=== PATIENT | male | born 1990 | race Caucasian/White ===

== ENCOUNTER 2017-03-27 13:47 | Observation (INO) ==
[2017-03-27] MEDS ORDERED: ZOFRAN 4 MG/2 ML IVP STA ×2 (13:55→14:42)
[2017-03-27] MEDS ORDERED: SODIUM CHLORIDE 1,000 ML IV STA ×2 (13:55→15:15)
--- NOTE | 2017-03-27 14:03 | ED.PDOC ---
General ED Provider: Dr. BRUCE BECKFORD JR Chief Complaint: Nausea/Vomiting Stated Complaint: VOMITED 3 - 4 TIMES, ABD PAIN, DIARRHEA[ End ]since 0900 96.5 70 24 99% 9/10 loud retching limited communication complans of nausea Time Seen by Physician: 13:57 Mode of Arrival: Walk-In Information Source: Patient Exam Limitations: No limitations Nursing and Triage Documentation Reviewed and Agree: No Review of Systems - Review Of Systems Constitutional: Reports: Malaise, Weakness Eyes: Reports: No symptoms Ears, Nose, Mouth, Throat: Reports: No symptoms Respiratory: Reports: No symptoms Cardiac: Reports: No symptoms GI: Reports: Abdominal pain, Diarrhea, Nausea, Vomiting : Reports: No symptoms Musculoskeletal: Reports: No symptoms Skin: Reports: No symptoms Neurological: Reports: No symptoms Endocrine: Reports: No symptoms Hematologic/Lymphatic: Reports: No symptoms All Other Systems: Other Past Medical History - Past Medical History Previously Healthy: Yes Endocrine: Reports: None Cardiovascular: Reports: None Respiratory: Reports: None Hematological: Reports: None Gastrointestinal: Reports: None Genitourinary: Reports: None Neuro/Psych: Reports: None, Other (ADD) Musculoskeletal: Reports: None Cancer: Reports: None - Surgical History General Surgical History: Reports: Appendectomy, Cholecystectomy, Tonsillectomy - Family History Family History: Reports: None - Social History Smoking Status: Current every day smoker Hx Substance Use: No Alcohol Screening: Occasionally Physical Exam - Physical Exam Appearance: Ill-appearing Ill-appearing: Moderate Pain Distress: Moderate Eyes: VINCENT ENT: Ears normal, Nose normal, Oropharynx normal Neck: Supple Respiratory: Airway patent, Breath sounds clear, Breath sounds equal, Respirations nonlabored Cardiovascular: RRR, Pulses normal, No rub, No murmur GI/: No masses, Bowel sounds hyperactive Musculoskeletal: Normal strength, ROM intact, No edema, No calf tenderness Skin: Warm, Dry, Normal color Neurological: Sensation intact, Motor intact, Reflexes intact, Cranial nerves intact, Alert, Oriented Psychiatric: Anxious Re-Evaluation - Re-Evaluation Time of Re-Evaluation: 16:13 Status: Improved (a little better still nauseated) - Re-Evaluation Time of Re-Evaluation: 16:13 (stuill with some nausea much more comfortable) Critical Care Note - Critical Care Note Total Time (mins): 0 Course - Course Hematology/Chemistry: 03/27/17 14:00 03/27/17 14:00 Orders, Labs, Meds: Lab Review 03/27/17 03/27/17 14:00 16:55 WBC 13.44 H RBC 5.54 Hgb 16.0 Hct 46.1 MCV 83.2 MCH 28.9 MCHC 34.7 RDW Coeff of Alejandra 12.5 Plt Count 362 Immature Gran % (Auto) 0.4 Neut % (Auto) 76.9 Lymph % (Auto) 17.0 Nicholas % (Auto) 4.6 Eos % (Auto) 0.7 Baso % (Auto) 0.4 Immature Gran # (Auto) 0.1 Neut # 10.3 H Lymph # 2.3 Nicholas # 0.6 Eos # 0.1 Baso # 0.1 Sodium 142 Potassium 3.9 Chloride 108 H Carbon Dioxide 21 Anion Gap 16.9 BUN 8 Creatinine 0.93 Estimated GFR (MDRD) 99.00 BUN/Creatinine Ratio 8.60 Glucose 112 H Calcium 10.2 Total Bilirubin 0.60 AST 16 ALT 20 Alkaline Phosphatase 71 Total Protein 7.9 Albumin 4.8 Globulin 3.1 Albumin/Globulin Ratio 1.55 Amylase 42 Lipase 9 Urine Color Yellow Urine Clarity Clear Urine pH 7.0 Ur Specific [place] 1.025 Urine Protein Negative Urine Glucose (UA) Negative Urine Ketones Negative Urine Blood Negative Urine Nitrite Negative Urine Bilirubin Negative Urine Urobilinogen 0.2 Ur Leukocyte Esterase Negative H. pylori IgG Antibody Negative Orders Category Date Time Status PLACE PATIENT OBSERVATION .TO [facility] (NON-MONITORED ADMISSION 03/27/17 17: 27 Ordered BED) ACTIVITY .Early Mobilization for VTE Prevention CARE 03/27/17 17:29 Ordered GIVE HS SNACK 2100 CARE 03/27/17 17:29 Ordered INTAKE & OUTPUT Q8HR CARE 03/27/17 17:28 Ordered VITAL SIGNS Q4HR CARE 03/27/17 17:29 Ordered CLEAR LIQUID DIET DIETARY 03/27/17 Dinner Ordered HS SNACK DIETARY 03/27/17 Dinner Ordered ED IV/MEDIPORT/POWERPORT .ONCE EMERGENCY 03/27/17 13:54 Active AMYLASE Stat LAB 03/27/17 14:00 Completed BLOOD CULTURE Stat LAB 03/27/17 17:26 Ordered CBC W/ AUTO DIFF DAILY@0600 LAB 03/28/17 06:00 Ordered CBC W/ AUTO DIFF DAILY@0600 LAB 03/29/17 06:00 Ordered CBC W/ AUTO DIFF DAILY@0600 LAB 03/30/17 06:00 Ordered CBC W/ AUTO DIFF DAILY@0600 LAB 03/31/17 06:00 Ordered CBC W/ AUTO DIFF DAILY@0600 LAB 04/01/17 06:00 Ordered CBC W/ AUTO DIFF DAILY@0600 LAB 04/02/17 06:00 Ordered CBC W/ AUTO DIFF DAILY@0600 LAB 04/03/17 06:00 Ordered CBC W/ AUTO DIFF DAILY@0600 LAB 04/04/17 06:00 Ordered CBC W/ AUTO DIFF DAILY@0600 LAB 04/05/17 06:00 Ordered CBC W/ AUTO DIFF DAILY@0600 LAB 04/06/17 06:00 Ordered CBC W/ AUTO DIFF DAILY@0600 LAB 04/07/17 06:00 Ordered CBC W/ AUTO DIFF DAILY@0600 LAB 04/08/17 06:00 Ordered CBC W/ AUTO DIFF DAILY@0600 LAB 04/09/17 06:00 Ordered CBC W/ AUTO DIFF DAILY@0600 LAB 04/10/17 06:00 Ordered CBC W/ AUTO DIFF DAILY@0600 LAB 04/11/17 06:00 Ordered CBC W/ AUTO DIFF DAILY@0600 LAB 04/12/17 06:00 Ordered CBC W/ AUTO DIFF DAILY@0600 LAB 04/13/17 06:00 Ordered CBC W/ AUTO DIFF DAILY@0600 LAB 04/14/17 06:00 Ordered CBC W/ AUTO DIFF DAILY@0600 LAB 04/15/17 06:00 Ordered CBC W/ AUTO DIFF DAILY@0600 LAB 04/16/17 06:00 Ordered CBC W/ AUTO DIFF [facility] LAB 03/27/17 14:00 Completed COMPREHENSIVE METABOLIC PANEL DAILY@0600 LAB 03/28/17 06:00 Ordered COMPREHENSIVE METABOLIC PANEL DAILY@0600 LAB 03/29/17 06:00 Ordered COMPREHENSIVE METABOLIC PANEL DAILY@0600 LAB 03/30/17 06:00 Ordered COMPREHENSIVE METABOLIC PANEL DAILY@0600 LAB 03/31/17 06:00 Ordered COMPREHENSIVE METABOLIC PANEL DAILY@0600 LAB 04/01/17 06:00 Ordered COMPREHENSIVE METABOLIC PANEL DAILY@0600 LAB 04/02/17 06:00 Ordered COMPREHENSIVE METABOLIC PANEL DAILY@0600 LAB 04/03/17 06:00 Ordered COMPREHENSIVE METABOLIC PANEL DAILY@0600 LAB 04/04/17 06:00 Ordered COMPREHENSIVE METABOLIC PANEL DAILY@0600 LAB 04/05/17 06:00 Ordered COMPREHENSIVE METABOLIC PANEL DAILY@0600 LAB 04/06/17 06:00 Ordered COMPREHENSIVE METABOLIC PANEL DAILY@0600 LAB 04/07/17 06:00 Ordered COMPREHENSIVE METABOLIC PANEL DAILY@0600 LAB 04/08/17 06:00 Ordered COMPREHENSIVE METABOLIC PANEL DAILY@0600 LAB 04/09/17 06:00 Ordered COMPREHENSIVE METABOLIC PANEL DAILY@0600 LAB 04/10/17 06:00 Ordered COMPREHENSIVE METABOLIC PANEL DAILY@0600 LAB 04/11/17 06:00 Ordered COMPREHENSIVE METABOLIC PANEL DAILY@0600 LAB 04/12/17 06:00 Ordered COMPREHENSIVE METABOLIC PANEL DAILY@0600 LAB 04/13/17 06:00 Ordered COMPREHENSIVE METABOLIC PANEL DAILY@0600 LAB 04/14/17 06:00 Ordered COMPREHENSIVE METABOLIC PANEL DAILY@0600 LAB 04/15/17 06:00 Ordered COMPREHENSIVE METABOLIC PANEL DAILY@0600 LAB 04/16/17 06:00 Ordered COMPREHENSIVE METABOLIC PANEL Stat LAB 03/27/17 14:00 Completed H. PYLORI SCREEN Stat LAB 03/27/17 14:00 Completed LIPASE Stat LAB 03/27/17 14:00 Completed STOOL CULTURE Stat LAB 03/27/17 Ordered URINALYSIS C & S IF INDICATED Stat LAB 03/27/17 16:55 Completed 0.9 % Sodium Chloride [Saline Flush] MEDS 03/27/17 13:54 Active 1 syr IVF PRN PRN Acetaminophen [Tylenol] MEDS 03/27/17 17:29 Ordered 650 mg PO Q4H PRN Lisdexamfetamine Dimesylate [Vyvanse] MEDS 03/28/17 09:00 Ordered 40 mg PO DAILY Morphine Sulfate [Morphine 4 mg/ml Syringe] MEDS 03/27/17 14:41 Discontinued 4 mg IVP ONCE STA Morphine Sulfate [Morphine 4 mg/ml Syringe] MEDS 03/27/17 17:37 Ordered 4 mg IVP Q6H PRN Ondansetron HCl/Pf [Zofran 4 mg/2 ml] MEDS 03/27/17 13:55 Discontinued 4 mg IVP ONCE STA Ondansetron HCl/Pf [Zofran 4 mg/2 ml] MEDS 03/27/17 14:42 Discontinued 4 mg IVP ONCE STA Ondansetron HCl/Pf [Zofran 4 mg/2 ml] MEDS 03/27/17 17:26 Ordered 4 mg IVP Q6H PRN Promethazine HCl [Phenergan 25 mg/ml Vial] MEDS 03/27/17 15:22 Discontinued 25 mg .ROUTE .STK-MED ONE Promethazine HCl [Phenergan 25 mg/ml Vial] 25 mg MEDS 03/27/17 15:18 Discontinued 0.9 % Sodium Chloride [Sodium Chloride] 50 ml IV ONCE Sodium Chloride 0.9% [Sodium Chloride] 1,000 ml MEDS 03/27/17 17:30 Ordered IV 75 mls/hr Sodium Chloride 0.9% [Sodium Chloride] 1,000 ml MEDS 03/27/17 13:55 Discontinued IV BOLUS Sodium Chloride 0.9% [Sodium Chloride] 1,000 ml MEDS 03/27/17 15:15 Discontinued IV BOLUS RESUSCITATION STATUS Routine OTHERS 03/27/17 17:[address] ABDOMEN/PELVIS WO CONTRAST Stat RADS 03/27/17 13:54 Completed Medications Generic Name Dose Route Start Last Admin Trade Name Freq PRN Reason Stop Dose Admin Acetaminophen 650 mg 03/27/17 17:29 Tylenol PO Q4H PRN Mild Pain Sodium Chloride 1,000 mls @ 75 mls/hr 03/27/17 17:30 Sodium Chloride IV .[id number] [facility] Morphine Sulfate 4 mg 03/27/17 17:37 Morphine 4 Mg/Ml Syringe IVP Q6H PRN pain Non-Formulary Medication 40 mg 03/28/17 09:00 Lisdexamfetamine Dimesylate [Vyvanse] PO DAILY [facility] Ondansetron HCl 4 mg 03/27/17 17:26 Zofran 4 Mg/2 Ml IVP Q6H PRN Nausea / Vomiting Sodium Chloride 1 syr 03/27/17 13:54 03/27/17 14:50 Saline Flush IVF 1 syr PRN PRN Administration To flush IV Discontinued Medications Generic Name Dose Route Start Last Admin Trade Name Freq PRN Reason Stop Dose Admin Sodium Chloride 1,000 mls @ 1,000 mls/hr 03/27/17 13:55 03/27/17 14:12 Sodium Chloride IV 03/27/17 14:54 1,000 mls/hr BOLUS STA Administration Sodium Chloride 1,000 mls @ 1,000 mls/hr 03/27/17 15:15 03/27/17 15:21 Sodium Chloride IV 03/27/17 16:14 1,000 mls/hr BOLUS STA Administration Promethazine HCl 25 mg/ Sodium 51 mls @ 75 mls/hr 03/27/17 15:18 03/27/17 15: 32 Chloride IV 03/27/17 15:58 75 mls/hr ONCE STA Administration Morphine Sulfate 4 mg 03/27/17 14:41 03/27/17 14:49 Morphine 4 Mg/Ml Syringe IVP 03/27/17 14:42 4 mg ONCE STA Administration Ondansetron HCl 4 mg 03/27/17 13:55 03/27/17 14:12 Zofran 4 Mg/2 Ml IVP 03/27/17 13:56 4 mg ONCE STA Administration Ondansetron HCl 4 mg 03/27/17 14:42 03/27/17 14:48 Zofran 4 Mg/2 Ml IVP 03/27/17 14:43 4 mg ONCE STA Administration Vital Signs: Temp Pulse Resp BP Pulse Ox 03/27/17 17:17 130/61 03/27/17 13:49 96.5 F L 70 24 0/0 L 99 Departure - Departure Time of Disposition: 16:22 Disposition: PLACED OBSERVATION Discharge Problem: Nausea, Vomiting, Gastroenteritis Instructions: Dehydration (ED), Gastroenteritis (ED), Acute Nausea and Vomiting (ED) Condition: Fair Pt referred to PMD for follow-up: Yes Additional Instructions: clear liquids only for 12 hours if nausea take one teaspoonful at time liquids with small amounts of salt and sugar are absorbed well may use phenergan for nausea Tylenol for pain or fever 650 or 1000mg four times a day limit Tylenol to 4000mg a day (note [place] contains Tylenol) [place] for [pain not controlled by Tylenol recheck PMD this week return if unable to void three times a day or if fever over 101.0 peptobismol for diarrhea may use Immodium if no fever Prescriptions: Hydrocodone Bit/Acetaminophen [[place] 5-325] 1 - 2 tab PO Q6HR PRN #12 tablet PRN Reason: pain Promethazine HCl [Phenergan Tab] 25 mg PO QID PRN #12 tablet PRN Reason: Nausea / Vomiting Allergies/Adverse Reactions: Allergies No Known Allergies Allergy (Unverified 03/27/17 13:48) Home Medications: Ambulatory Orders Lisdexamfetamine Dimesylate [Vyvanse] 40 mg PO DAILY #30 05/12/16 Hydrocodone Bit/Acetaminophen [[place] 5-325] 1 - 2 tab PO Q6HR PRN #12 tablet 03/06 Promethazine HCl [Phenergan Tab] 25 mg PO QID PRN #12 tablet 03/27/17
[2017-03-27 14:22] LABS: BASOPHILS # (AUTO) 0.1 K/uL (0-0.2); BASOPHILS % (AUTO) 0.4 % (0.0-3.0); EOSINOPHILS # (AUTO) 0.1 K/ul (0.0-0.7); EOSINOPHILS % (AUTO) 0.7 % (0.0-7.0); HEMATOCRIT 46.1 % (42.0-52.0); IMMATURE GRANULOCYTE % (AUTO) 0.4 % (0.0-5.0); LYMPHOCYTES # (AUTO) 2.3 K/uL (0.60-3.4); MEAN CORPUSCULAR HEMOGLOBIN 28.9 pg (27.0-31.0); MEAN CORPUSCULAR HGB CONC 34.7 (31.8-35.4); MEAN CORPUSCULAR VOLUME 83.2 fl (80.0-94.0); MONOCYTES # (AUTO) 0.6 K/uL (0.4-2.0); MONOCYTES % (AUTO) 4.6 (0-10); NEUTROPHILS # (AUTO) 10.3 K/ul (2.0-6.9); NEUTROPHILS % (AUTO) 76.9; PLATELET COUNT 362 10^3/uL (140-440); RED BLOOD COUNT 5.54 10^6/ul (4.70-6.10); WHITE BLOOD COUNT 13.44 K/ul (4.2-10.2)
[2017-03-27 14:35] LABS: ALBUMIN 4.8 g/dL (3.4-5.0); CALCIUM 10.2 mg/dL (8.2-10.2); POTASSIUM 3.9 mmol/L (3.5-5.1)
[2017-03-27 14:36] LABS: ALBUMIN/GLOBULIN RATIO 1.55; ANION GAP 16.9; BILIRUBIN,TOTAL 0.6 mg/dL (0.00-1.20); BUN/CREATININE RATIO 8.6; CREATININE 0.93 mg/dL (0.60-1.10); TOTAL PROTEIN 7.9 g/dL (6.4-8.2)
[2017-03-27 14:40] LABS: H. PYLORI ANTIBODY NEGATIVE (NEGATIVE); H.PYLORI INTERNAL QC INTERNAL QC VALID
[2017-03-27] MEDS ORDERED: MORPHINE 4 MG/ML SYRINGE IVP STA (14:41)
--- NOTE | 2017-03-27 15:02 | CT ---
EXAM: CT ABDOMEN AND PELVIS HISTORY: Upper abdominal pain with nausea and vomiting. Previous cholecystectomy and appendectomy. TECHNIQUE: CT abdomen and pelvis without intravenous contrast. Images were reconstructed using 5 m m section thickness. Reformations were prepared. COMPARISON: 10/03/2015 FINDINGS: Motion artifact degrades image quality. Diagnostic limitations exist without including contrast enha nced images. No focal hepatic or splenic lesions. Gallbladder is absent. Pancreas and adrenal gla nds are within normal limits. Kidneys, ureters and abdominal aorta appear normal. Small sliding hiatal hernia. There is no gastric distension. No appendix is identified consistent with the patient's history. The colon appears normal. There is increased submucosal fat deposition within the terminal ileum possibly related to previous bouts of inflammation. No active terminal i leitis is seen. It would be difficult to exclude at least mild fold thickening of the proximal smal l bowel at the duodenal - jejunal junction. Bowel gas pattern is nonobstructive. Urinary bladder a nd prostate appear normal. There is no ascites. No abdominal wall hernia or acute bony abnormalities. Lung bases are free of acute infiltrate. No pneumoperitoneum. IMPRESSION: 1. Cannot exclude mild proximal enteritis. In addition, there is possible evidence of previous ter ju[place] ileitis with no active disease at this level currently seen. Bowel gas pattern is nonobstruct lizet. There is no ascites or free air. 2. Small sliding hiatal hernia.
[2017-03-27] MEDS ORDERED: PHENERGAN 25 MG/ML VIAL 25 MG in SODIUM CHLORIDE 50 ML IV STA (15:18)
[2017-03-27] MEDS ORDERED: PHENERGAN 25 MG/ML VIAL ONE (15:22)
[2017-03-27 17:00] LABS: ADD URINE MICROSCOPIC NO; BILIRUBIN,URINE Negative (NEGATIVE); KETONES,URINE Negative (NEGATIVE); LEUKOCYTE ESTERASE ,URINE Negative (NEGATIVE); NITRITE,URINE Negative (NEGATIVE); PROTEIN,URINE Negative (NEGATIVE); URINE, BLOOD Negative (NEGATIVE)
[2017-03-27] MEDS ORDERED: TYLENOL PO PRN (17:29)
[2017-03-27] MEDS: SODIUM CHLORIDE 1,000 ML IV SCH (18:05)
[2017-03-27] MEDS: ZOFRAN 4 MG/2 ML IVP PRN (18:16)
[2017-03-27 18:38] VITALS: BMI 33.0
[2017-03-27] MEDS: MORPHINE 4 MG/ML SYRINGE IVP PRN (20:37)
[2017-03-28] MEDS: ZOFRAN 4 MG/2 ML IVP PRN ×2 (00:43→09:04)
[2017-03-28] MEDS: MORPHINE 4 MG/ML SYRINGE IVP PRN ×2 (04:33→11:20)
[2017-03-28 05:35] LABS: BASOPHILS % (AUTO) 0.1 % (0.0-3.0); HEMATOCRIT 42.3 % (42.0-52.0); HEMOGLOBIN 14.7 g/dl (14.0-18.0); IMMATURE GRANULOCYTE % (AUTO) 0.4 % (0.0-5.0); LYMPHOCYTES # (AUTO) 1.7 K/uL (0.60-3.4); LYMPHOCYTES % (AUTO) 10.4 (10.0-50.0); MEAN CORPUSCULAR HGB CONC 34.8 (31.8-35.4); MEAN CORPUSCULAR VOLUME 83.4 fl (80.0-94.0); MONOCYTES # (AUTO) 0.9 K/uL (0.4-2.0); MONOCYTES % (AUTO) 5.8 (0-10); NEUTROPHILS # (AUTO) 13.5 K/ul (2.0-6.9); NEUTROPHILS % (AUTO) 83.3; PLATELET COUNT 325 10^3/uL (140-440); RED BLOOD COUNT 5.07 10^6/ul (4.70-6.10); WHITE BLOOD COUNT 16.17 K/ul (4.2-10.2)
[2017-03-28 05:56] LABS: ALBUMIN 4.1 g/dL (3.4-5.0); ALBUMIN/GLOBULIN RATIO 1.52; ANION GAP 18.5; BILIRUBIN,TOTAL 0.84 mg/dL (0.00-1.20); BUN/CREATININE RATIO 9.09; CALCIUM 9.2 mg/dL (8.2-10.2); CREATININE 0.77 mg/dL (0.60-1.10); POTASSIUM 3.5 mmol/L (3.5-5.1); TOTAL PROTEIN 6.8 g/dL (6.4-8.2)
[2017-03-28] MEDS: SODIUM CHLORIDE 1,000 ML IV SCH (08:32)
[2017-03-28] MEDS ORDERED: LISDEXAMFETAMINE DIMESYLATE 40 MG PO SCH (09:00)
[2017-03-28 11:15] VITALS: BP 113/61; TEMP 98.1
--- NOTE | 2017-03-29 09:13 | SSS ---
DATE OF ADMISSION: 03/27/17 DATE OF DISCHARGE: 03/28/17 REASON FOR CONSULTATION/ADMISSION: Observation. Gastroenteritis, nausea and no vomiting. Seen in ER by Dr. Castanon. HISTORY OF PRESENT ILLNESS: Nausea or vomiting. 3-4 episodes of emesis in last 4 hours. Denies diarrhea unable to eat or drink. REVIEW OF SYSTEMS: CONSTITUTIONAL: No night sweats. No fatigue and lethargy. No fever or chills. Malaise and Weakness. HEENT: Eyes: No visual changes. No eye pain. No eye discharge. ENT: No runny nose. No epistaxis. No sinus pain. No sore throat. No odynophagia. No ear pain. No congestion. RESPIRATORY: No cough, no congestion. No hemoptysis. CARDIOVASCULAR: No angina symptoms. No CHF symptoms. No atypical chest pain for CAD. No palpitations. No shortness of breath. GASTROINTESTINAL: Mild abdominal pain. Nausea and vomiting. Diarrhea- none now. No hematemesis. No hematochezia. GENITOURINARY: No urgency. No frequency. No dysuria. No hematuria. No obstructive symptoms. No discharge. No pain. No significant abnormal bleeding. MUSCULOSKELETAL: No musculoskeletal pain. No joint swelling. NEUROLOGICAL: Awake, alert, oriented to time, place and person. No headache. No neck pain. No syncope. No seizures. No dizziness. PSYCHIATRIC: Not anxious. No depression. No suicidal thoughts. No homicidal thoughts. SKIN: No rash. No lesions. No wounds. ENDOCRINE: No unexplained weight loss. No weight gain. HEMATOLOGIC/LYMPHATIC: No anemia. No purpura. No petechiae. No prolonged or excessive bleeding. No palpable lymph nodes. PAST HISTORY: ADHD Appendectomy Cholecystectomy Tonsillectomy PERSONAL/FAMILY HISTORY/SOCIAL HISTORY: Single. Resides at home with parent. Independent with ADL's. Current every day smoker. Alcohol occasionally. No DME. No home health or Homemaker. PHYSICAL EXAMINATION: GENERAL: The patient is a 26 year old male. VITAL SIGNS: Blood pressure 117/80 left and 124/86 right, heart rate 50, respiratory rate 16, temperature 98.2 with saturation of 100% on room air. Height 5'11 and weight 236. HEENT: Head normocephalic, atraumatic. Eyes: Extraocular muscles are intact. Pupils are equal, round and reactive to light and accommodation. Ears: No lesions. Nose appeared normal. Throat: No exudate or erythema. NECK: Supple. No JVD, no carotid bruit. No lymphadenopathy or thyromegaly. LUNGS: Clear to auscultation. Percussion note normal. Chest symmetrical. HEART: S1, S2, no S3. No murmurs. No cyanosis or clubbing. No ascites. Pulses: Dorsalis pedis and posterior tibial pulses +1 to +2 both sides. ABDOMEN: Soft. Nontender. Bowel sounds active. No CVA tenderness. No mass felt. EXTREMITIES: No edema. Full range of motion of all extremities, equal. NEUROLOGIC: No focal deficit. Cranial nerves II through XII are grossly intact. No headache, no double vision or headache. SKIN: Not dry. Intact. Turgor - normal. LYMPHATIC: No palpable lymph nodes/no lymphedema. MUSCULOSKELETAL: Normal joints with no swelling. Muscle tone is normal. Old/present records reviewed: Yes Office records reviewed: Yes ALLERGIES: No known drug allergies MEDICATIONS: Vyvanse LABS/EKG'S/X-RAY/ECHO/ABG: WBC 13.44, hgb 16, hct 46.1, plt count 362, RBC 5.54, Sodium 142, potassium 3.9 , chloride 108, bicarb 21, BUN 8, creatinine 0.93 and glucose 112. Amylase 42, lipase 9, Neut 10.3, H. Pylori negative. Urinalysis negative, CT abdomen and pelvis can't exclude mild proximal enteritis. Previous terminal ileitis, no active disease currently. No ascites or free air. PROGRESS NOTES: See EMR. DIAGNOSES: 1. Acute gastroenteritis 2. Dehydration RECOMMENDATIONS/PLAN: 1. Discharge home 2. Followup with primary care provider as soon as possible 3. Protonix 40mg PO daily #30 no refill 4. Zofran 4mg PO three times a day PRN x five days #15. no refill 5. Diet as tolerated, avoid milk products 6. Activity get plenty of rest at home. Gradually increase activity as tolerated. TIME SPENT: More than 70 minutes. MTDD
--- NOTE | 2017-03-29 09:59 | HP ---
DATE OF SERVICE: 03/27/17 SUBJECTIVE: The patient is a 26 year old white male hospitalized came to the emergency room with nausea and vomiting with some diarrhea. The patient had sever bought of it. It started on the morning of hospitalization. The patient had similar episode several years ago. The patient doesn't remember anything that could have triggered this nausea and vomiting. The patient denied of any chills or fever. The diarrhea was loose stools for a couple of times but mainly the problem with dry heaves with vomiting. The patient was seen and examined in the emergency room by ER attending and was advised hospitalization for observation with IV fluids, Zofran and Morphine Sulfate for dry heaves and abdominal discomfort that he was having. REVIEW OF SYSTEMS: CONSTITUTIONAL: No night sweats. Fatigue and weakness. No fever or chills. HEENT: Eyes: No visual changes. No eye pain. No eye discharge. ENT: No runny nose. No epistaxis. No sinus pain. No sore throat. No odynophagia. No congestion. RESPIRATORY: No cough, no congestion. No hemoptysis. CARDIOVASCULAR: No angina symptoms. No CHF symptoms. No atypical chest pain for CAD. No palpitations. No shortness of breath. GASTROINTESTINAL: No abdominal pain. Nausea and vomiting with dry heaves with subcostal muscle pains. Mild diarrhea, stopped already. No hematemesis. No hematochezia. GENITOURINARY: No urgency. No frequency. No dysuria. No hematuria. No obstructive symptoms. No discharge. No pain. No significant abnormal bleeding. MUSCULOSKELETAL: No musculoskeletal pain; no joint swelling. Generalized aches. NEUROLOGICAL: No headache. No neck pain. No syncope. No seizures. No dizziness. PSYCHIATRIC: Not anxious. No depression. No suicidal thoughts. No homicidal thoughts. SKIN: No rash. No lesions. No wounds. ENDOCRINE: No unexplained weight loss. No weight gain. HEMATOLOGIC/LYMPHATIC: No anemia. No purpura. No petechiae. No prolonged or excessive bleeding. No palpable lymph nodes. MEDICAL/SURGICAL HISTORY: History of psoriasis three to four years Attention deficit syndrome for which he is being followed by Dr. Saleh on Vyvanse PERSONAL/FAMILY/SOCIAL HISTORY: The patient is single, non-smoker and no alcohol abuse and no history of drug abuse MEDICATION: Vyvanse 40mg PO daily ALLERGIES: No known drug allergies. PHYSICAL EXAMINATION: GENERAL: The patient is oriented to time, place and person. VITAL SIGNS: Temperature 97.7, pulse 54, respiratory rate 20, blood pressure 140/86 and pulse ox 100%. HEENT: Head normocephalic, atraumatic. Eyes: Extraocular muscles are intact. Pupils are equal, round and reactive to light and accommodation. Ears: No lesions. Nose appeared normal. Throat: No exudate or erythema. Mucosa membrane dry. NECK: Supple. No JVD, no carotid bruit. No lymphadenopathy or thyromegaly. LUNGS: Clear to auscultation. Percussion note normal. Chest symmetrical. HEART: S1, S2, no S3. No murmurs. No cyanosis or clubbing. No ascites. Pulses: Dorsalis pedis and posterior tibial pulses +1 to +2 both sides. ABDOMEN: Soft. Nontender. Bowel sounds active. No CVA tenderness. No mass felt. EXTREMITIES: No edema. Full range of motion of all extremities, equal. NEUROLOGIC: No focal deficit. Cranial nerves II through XII are grossly intact. No headache, no double vision or headache. SKIN: Dry. Intact. Turgor - normal. LYMPHATIC: No palpable lymph nodes/no lymphedema. MUSCULOSKELETAL: Normal joints with no swelling. Muscle tone is normal. LABS: hgb 16, hct 46, WBC 13,000 normal differential, creatinine 0.9, BUN 8, glucose 112, liver profile negative, UA negative ASSESSMENT: 1. Acute gastroenteritis, likely flu type of symptoms with aches and pain and could be viral 2. Psoriasis 3. Attention deficit syndrome 4. Dehydration PLAN: 1. Admit 2. IV fluid 100cc per hour normal saline 3. Zofran PRN 4. Morphine Sulfate as needed 5. Symptomatic treatment 6. Do CBC and CMP in the morning 7. Stool for culture sensitivity CONDITION: Stable. TIME SPENT: More than 70 minutes. MTDD
--- NOTE | 2017-03-29 10:35 | DS ---
DATE OF SERVICE: 03/28/17 FINAL DIAGNOSIS: 1. Gastroenteritis, likely viral 2. Psoriasis 3. Attention deficit syndrome DISCHARGE INSTRUCTIONS: Discharge home today. The patient is not to go back to work until seen by me in 4-5 days. MEDICATIONS AT DISCHARGE: Continue Vyvanse as before Zofran 4mg three times a day PRN #15 NEW PRESCRIPTIONS: Zofran 4mg three times a day PRN #15 Protonix 40mg take one tablet PO #30 no refills. SURGICAL HISTORY: Cholecystectomy Appendectomy DIET INSTRUCTIONS: As tolerated, avoid milk and milk products ACTIVITY: Get plenty of rest at home. Gradually increase activity level according to toleration. SMOKING: Current every day smoker. DISEASE SPECIFIC EDUCATION: Diet Followup Medications HOSPITAL COURSE: The patient is a 26 year old white male hospitalized with acute gastroenteritis which was quite severe. The patient already had vomiting 3-4 times before coming and abdominal pain was more like subcostal, diarrhea was mild. The patient was given dramatic treatment with Zofran, IV fluids, Morphine Sulfate and the patient's condition has improved. The next day the patient was up and about with practically normal appetite. His hydration status improved. His labs at the time of discharge were hgb 14.7, hct 42, WBC 16,000 normal differential, creatinine 0.7, BUN 7, potassium 3.5 and glucose 119. The patient is advised to avoid milk and milk products and citrus things. If symptoms reoccur come to the emergency room. The patient is to be seen by me on followup in 4-5 days. Advised to rest until then. The patient works at [employer]. CT scan of the abdomen done on proximal enteritis also discussed about terminal ileitis, the symptoms. Also small sliding hiatal hernia noted on the CT scan of the abdomen. The patient is strongly advised to get a primary physician where he could be followed. TIME SPENT: More than 60 minutes. LANA
--- NOTE | 2017-03-29 10:37 | PN ---
03/27/17: Level 5 03/27/17: D as is discharge for observation MTDD
== END 2017-03-28 16:37 | disposition home or self-care (01) ==
LOC: ED 13:47 → MEDSURG B 17:35
PROVIDERS: ADMIT Internal Medicine; ATTEND Internal Medicine
DX: K52.9 Noninfective gastroenteritis and colitis, unspecified (principal); K44.9 Diaphragmatic hernia without obstruction or gangrene; L40.9 Psoriasis, unspecified; F90.9 Attention-deficit hyperactivity disorder, unspecified type; F17.200 Nicotine dependence, unspecified, uncomplicated; Z90.49 Acquired absence of other specified parts of digestive tract; Z79.899 Other long term (current) drug therapy
CPT/HCPCS: 36415; 80053; 81001; 82150; 83690; 85025; 86677; 87040; 96361; 96366; 96374; 96375; 96376; 99217; 99220; 99284

== ENCOUNTER 2017-03-29 07:58 | Emergency (ER) ==
[2017-03-29 08:02] VITALS: BP 132/84; TEMP 97.9; BMI 33.5
[2017-03-29 08:19] LABS: BASOPHILS # (AUTO) 0.1 K/uL (0-0.2); BASOPHILS % (AUTO) 0.4 % (0.0-3.0); EOSINOPHILS % (AUTO) 0.3 % (0.0-7.0); HEMATOCRIT 44.4 % (42.0-52.0); HEMOGLOBIN 15.3 g/dl (14.0-18.0); IMMATURE GRANULOCYTE % (AUTO) 0.3 % (0.0-5.0); LYMPHOCYTES # (AUTO) 2.1 K/uL (0.60-3.4); LYMPHOCYTES % (AUTO) 15.8 (10.0-50.0); MEAN CORPUSCULAR HEMOGLOBIN 28.9 pg (27.0-31.0); MEAN CORPUSCULAR HGB CONC 34.5 (31.8-35.4); MEAN CORPUSCULAR VOLUME 83.9 fl (80.0-94.0); MONOCYTES # (AUTO) 0.9 K/uL (0.4-2.0); MONOCYTES % (AUTO) 6.4 (0-10); NEUTROPHILS # (AUTO) 10.2 K/ul (2.0-6.9); NEUTROPHILS % (AUTO) 76.8; PLATELET COUNT 334 10^3/uL (140-440); RED BLOOD COUNT 5.29 10^6/ul (4.70-6.10); WHITE BLOOD COUNT 13.26 K/ul (4.2-10.2)
--- NOTE | 2017-03-29 08:22 | ED.PDOC ---
General ED Provider: Dr. BRUCE BECKFORD JR Chief Complaint: Abdominal Pain Stated Complaint: patient discharged 1700 03/28/17; same problem had felt better just prior to discharge, watermelon and water at home last nightnothing else; upper abd pain; gastroenteritis; up at 0300 vomiting; same abd pain[End]gagging freq in triage; using emesis bag; vomited twice[End]97.9 71 20 98% 132/84 pain ADD, PSORIASIS --. : 03/27/17 : VOMITED 3-4, ABD PAIN, DIARRHEA 0900 retching nausea: Appendectomy, Cholecystectomy, Tonsillectomy WBC 13.[address] PATIENT OBSERVATION [Vyvanse] 40 mg PO DAILY:Nausea, Vomiting, Gastroenteritis: Dehydration. 03/27/17 CT ABD cannot exclude mild prox enteritis;possible previous terminal ileitis no active disease. ---------. : 10/03/15 RAFATI: Fever: body aches ,abdominal pain: Diffuse: Cramping: Radiologist: Positive (colitis)WBC 14.31 H : Colitis . 09/23/15 CT ABD enteritis possible colitis. neg HCV. 12/26/12 CT ABD negative with and without Time Seen by Physician: 08:26 Mode of Arrival: Walk-In Information Source: Patient Exam Limitations: No limitations Nursing and Triage Documentation Reviewed and Agree: No Review of Systems - Review Of Systems Constitutional: Reports: Malaise GI: Reports: Abdominal pain (sharp cramping epigastric), Nausea, Vomiting : Reports: No symptoms Musculoskeletal: Reports: No symptoms Skin: Reports: No symptoms Neurological: Reports: No symptoms Endocrine: Reports: No symptoms Hematologic/Lymphatic: Reports: No symptoms All Other Systems: Other Past Medical History - Past Medical History Previously Healthy: Yes Endocrine: Reports: None Cardiovascular: Reports: None Respiratory: Reports: None Hematological: Reports: None Gastrointestinal: Reports: None Genitourinary: Reports: None Neuro/Psych: Reports: None, Other (ADD) Musculoskeletal: Reports: None Cancer: Reports: None Other Pertinent Past Medical History: ADDTONSILECTOMYAPPYGALLBLADDER - Surgical History General Surgical History: Reports: Appendectomy, Cholecystectomy, Tonsillectomy - Family History Family History: Reports: None - Social History Smoking Status: Current every day smoker Hx Substance Use: No Alcohol Screening: Occasionally Physical Exam - Physical Exam Appearance: Ill-appearing, Obese Ill-appearing: Mild Pain Distress: Mild Eyes: VINCENT, EOMI, Conjunctiva clear ENT: Ears normal, Nose normal, Oropharynx normal Neck: Supple Respiratory: Airway patent, Breath sounds clear, Breath sounds equal, Respirations nonlabored Cardiovascular: RRR, Pulses normal, No rub, No murmur GI/: Soft, No masses, Tender, Bowel sounds hyperactive Musculoskeletal: Normal strength, ROM intact, No edema, No calf tenderness Skin: Warm, Dry, Normal color Neurological: Sensation intact, Motor intact, Reflexes intact, Cranial nerves intact, Alert, Oriented Psychiatric: Anxious Re-Evaluation - Re-Evaluation Time of Re-Evaluation: 13:27 Status: Improved Critical Care Note - Critical Care Note Total Time (mins): 0 Course - Course Hematology/Chemistry: 03/29/17 08:13 03/29/17 08:13 Orders, Labs, Meds: Lab Review 03/29/17 03/29/17 08:13 10:34 WBC 13.26 H RBC 5.29 Hgb 15.3 Hct 44.4 MCV 83.9 MCH 28.9 MCHC 34.5 RDW Coeff of Alejandra 12.9 Plt Count 334 Immature Gran % (Auto) 0.3 Neut % (Auto) 76.8 Lymph % (Auto) 15.8 [place] % (Auto) 6.4 Eos % (Auto) 0.3 Baso % (Auto) 0.4 Immature Gran # (Auto) 0.0 Neut # 10.2 H Lymph # 2.1 [place] # 0.9 Eos # 0.0 Baso # 0.1 Sodium 142 Potassium 3.5 Chloride 106 Carbon Dioxide 25 Anion Gap 14.5 BUN 8 Creatinine 0.89 Estimated GFR (MDRD) 104.00 BUN/Creatinine Ratio 8.98 Glucose 117 H Calcium 9.5 Total Bilirubin 0.75 AST 14 L ALT 21 Alkaline Phosphatase 59 Total Protein 7.3 Albumin 4.5 Globulin 2.8 Albumin/Globulin Ratio 1.61 Amylase 36 Lipase 11 Urine Color Yellow Urine Clarity Clear Urine pH 7.5 Ur Specific [place] 1.020 Urine Protein Negative Urine Glucose (UA) Negative Urine Ketones 1+ Urine Blood Negative Urine Nitrite Negative Urine Bilirubin Negative Urine Urobilinogen 0.2 Ur Leukocyte Esterase Negative Orders Category Date Time Status ED IV/MEDIPORT/POWERPORT .ONCE EMERGENCY 03/29/17 08:05 Active AMYLASE Stat LAB 03/29/17 08:13 Completed CBC W/ AUTO DIFF Stat LAB 03/29/17 08:13 Completed COMPREHENSIVE METABOLIC PANEL Stat LAB 03/29/17 08:13 Completed LIPASE Stat LAB 03/29/17 08:13 Completed STOOL CULTURE Stat LAB 03/29/17 Ordered URINALYSIS C & S IF INDICATED Stat LAB 03/29/17 10:34 Completed 0.9 % Sodium Chloride [Saline Flush] MEDS 03/29/17 08:05 Active 1 syr IVF PRN PRN 0.9 % Sodium Chloride [Saline Flush] MEDS 03/29/17 08:06 Active 1 syr IVF PRN PRN Dicyclomine Inj [Bentyl] MEDS 03/29/17 12:39 Discontinued 20 mg IM ONCE STA Glycopyrrolate [Robinol] MEDS 03/29/17 12:04 Stop Req 0.2 mg IVP ONCE STA Morphine Sulfate [Morphine 2 mg/ml Syringe] MEDS 03/29/17 09:00 Discontinued 2 mg IVP ONCE STA Ondansetron HCl/Pf [Zofran 4 mg/2 ml] MEDS 03/29/17 12:17 Discontinued 4 mg IVP ONCE STA Pantoprazole Sodium [Protonix IV] MEDS 03/29/17 08:06 Discontinued 40 mg IVP ONCE STA Promethazine HCl [Phenergan 25 mg/ml Vial] MEDS 03/29/17 08:21 Discontinued 25 mg .ROUTE .STK-MED ONE Promethazine HCl [Phenergan 25 mg/ml Vial] 25 mg MEDS 03/29/17 08:05 Discontinued 0.9 % Sodium Chloride [Sodium Chloride] 50 ml IV ONCE Sodium Chloride 0.9% [Sodium Chloride] 1,000 ml MEDS 03/29/17 08:05 Discontinued IV BOLUS Sodium Chloride 0.9% [Sodium Chloride] 1,000 ml MEDS 03/29/17 10:30 Discontinued IV BOLUS Medications Generic Name Dose Route Start Last Admin Trade Name Doron PRN Reason Stop Dose Admin Sodium Chloride 1 syr 03/29/17 08:05 03/29/17 08:27 Saline Flush IVF 1 syr PRN PRN Administration To flush IV Sodium Chloride 1 syr 03/29/17 08:06 Saline Flush IVF PRN PRN To flush IV Discontinued Medications Generic Name Dose Route Start Last Admin Trade Name Doron PRN Reason Stop Dose Admin Dicyclomine HCl 20 mg 03/29/17 12:39 03/29/17 12:53 Bentyl IM 03/29/17 12:40 20 mg ONCE STA Administration Glycopyrrolate 0.2 mg 03/29/17 12:04 Robinol IVP 03/29/17 12:05 ONCE STA Promethazine HCl 25 mg/ Sodium 51 mls @ 75 mls/hr 03/29/17 08:05 03/29/17 08: 33 Chloride IV 03/29/17 08:45 75 mls/hr ONCE STA Administration Sodium Chloride 1,000 mls @ 1,000 mls/hr 03/29/17 08:05 03/29/17 08:27 Sodium Chloride IV 03/29/17 09:04 1,000 mls/hr BOLUS STA Administration Sodium Chloride 1,000 mls @ 1,000 mls/hr 03/29/17 10:30 03/29/17 10:35 Sodium Chloride IV 03/29/17 11:29 1,000 mls/hr BOLUS STA Administration Morphine Sulfate 2 mg 03/29/17 09:00 03/29/17 09:08 Morphine 2 Mg/Ml Syringe IVP 03/29/17 09:01 2 mg ONCE STA Administration Ondansetron HCl 4 mg 03/29/17 12:17 03/29/17 12:32 Zofran 4 Mg/2 Ml IVP 03/29/17 12:18 4 mg ONCE STA Administration Pantoprazole Sodium 40 mg 03/29/17 08:06 03/29/17 08:32 Protonix Iv IVP 03/29/17 08:07 40 mg ONCE STA Administration Vital Signs: Temp Pulse Resp BP Pulse Ox 03/29/17 07:58 97.9 F 71 20 132/84 98 Departure - Departure Time of Disposition: 13:27 Disposition: HOME SELF-CARE Discharge Problem: Abdominal pain, Nausea, Vomiting Instructions: Acute Nausea and Vomiting (ED), Abdominal Pain (ED) Condition: Good Pt referred to PMD for follow-up: Yes Additional Instructions: note blood sugars have been elevated- avoid sugar and sugar/corn syrup sweetened food or drinks clear liquids for 12 hours then advance diet- avoid fried foods Bentyl for abdominal cramping follow up PMD one week, sooner if not resolved Allergies/Adverse Reactions: Allergies No Known Allergies Allergy (Verified 03/29/17 08:04) Home Medications: Ambulatory Orders Lisdexamfetamine Dimesylate [Vyvanse] 40 mg PO DAILY #30 05/12/16 Dicyclomine HCl [Bentyl] 10 mg PO QID PRN #14 capsule 03/29/17 Ondansetron HCl [Zofran] 4 mg PO DIRECTED PRN 03/29/17 Pantoprazole Sodium [Protonix] 20 mg PO DAILY 03/29/17
[2017-03-29] MEDS: SODIUM CHLORIDE 1,000 ML IV STA ×2 (08:27→10:35)
[2017-03-29] MEDS: PHENERGAN 25 MG/ML VIAL ONE (08:27)
[2017-03-29] MEDS: PROTONIX IV IVP STA (08:32)
[2017-03-29] MEDS: PHENERGAN 25 MG/ML VIAL 25 MG in SODIUM CHLORIDE 50 ML IV STA (08:33)
[2017-03-29 08:39] LABS: ALBUMIN 4.5 g/dL (3.4-5.0); ALBUMIN/GLOBULIN RATIO 1.61; ANION GAP 14.5; BILIRUBIN,TOTAL 0.75 mg/dL (0.00-1.20); BUN/CREATININE RATIO 8.98; CALCIUM 9.5 mg/dL (8.2-10.2); CREATININE 0.89 mg/dL (0.60-1.10); POTASSIUM 3.5 mmol/L (3.5-5.1); TOTAL PROTEIN 7.3 g/dL (6.4-8.2)
[2017-03-29] MEDS: MORPHINE 2 MG/ML SYRINGE IVP STA (09:08)
[2017-03-29 10:50] LABS: BILIRUBIN,URINE Negative (NEGATIVE); KETONES,URINE 1+ (NEGATIVE); LEUKOCYTE ESTERASE ,URINE Negative (NEGATIVE); NITRITE,URINE Negative (NEGATIVE); PH,URINE 7.5 (5-9); PROTEIN,URINE Negative (NEGATIVE); URINE, BLOOD Negative (NEGATIVE)
[2017-03-29 10:52] LABS: ADD URINE MICROSCOPIC NO
[2017-03-29] MEDS: ZOFRAN 4 MG/2 ML IVP STA (12:32)
[2017-03-29] MEDS: BENTYL IM STA (12:53)
[2017-03-29] MEDS: ROBINOL IVP STA (13:29)
== END 2017-03-29 13:53 | disposition home or self-care (01) ==
LOC: ED 07:58
DX: R10.9 Unspecified abdominal pain (principal); R11.2 Nausea with vomiting, unspecified; R73.9 Hyperglycemia, unspecified; F17.210 Nicotine dependence, cigarettes, uncomplicated
CPT/HCPCS: 36415; 80053; 81001; 82150; 83690; 85025; 96361; 96365; 96372; 96375; 99283